=== PATIENT | female | born 1990 | race Caucasian/White ===

== ENCOUNTER 2019-11-02 09:13 | Emergency (ER) | payer SELFPAY ==
[2019-11-02 09:19] VITALS: BP 121/89; PULSE 104; RESP 16; TEMP 36.9; O2SAT 100; BMI 23.3
--- NOTE | 2019-11-02 09:35 | ED_ITS ---
HPI - Chest Pain General: Chief Complaint: Chest Pain Stated Complaint: CP Time Seen by Provider: 11/02/19 09:18 History of Present Illness: HPI narrative: Patient is a 28-year-old female who comes to the ED with chest pain. Patient has a past medical history of anxiety and has a bicuspid heart valve. Symptoms started 2 weeks ago. She describes having waxing and waning chest pressure, heaviness and shortness of breath that occurs multiple times a day. Episodes start at rest and sometimes when patient is up moving around. She describes having pain that radiates down her left arm and is the back of her left shoulder. She currently rates her chest pain and discomfort a 1 out of 10. She does endorse having some epigastric pain. Patient did state that she has been stressed and anxious about some things that are going on her life currently. Denies abdominal pain, nausea/vomiting, bladder or bowel symptoms. Associated symptoms: Reports dyspnea; Deny abdominal pain, fever(s), nausea, palpitations or vomiting Review of Systems Const: Denies: fever(s), chills or fatigue Eyes: Denies: change in vision or eye discomfort ENMT: Denies: throat pain, odynophagia, nasal discharge or nasal congestion Card: Reports: chest pain (Chest pressure and heaviness.); Denies: palpitations, edema, swelling of feet/ankles, dyspnea on exertion or orthopnea Resp: Reports: dyspnea; Denies: productive cough or non-productive cough GI: Reports: other (She does endorse having some mild epigastric pain.); Denies: abdominal pain, nausea, vomiting, diarrhea, constipation or hematochezia : Denies: flank pain, dysuria or hematuria Musc: Denies: neck pain, back pain or extremity swelling Skin/Breast: Denies: rash or new lesions Neuro: Denies: headache(s), numbness in extremities or weakness in extremities Physical Exam Narrative: EXAM NARRATIVE: Patient is a 28-year-old female comes to the ED with chest pain and upon examination she is showing no signs of any acute distress or pain. She is sitting comfortably on the exam bed and showing no signs of any respiratory distress. Const: COMMON NORMALS: no acute distress, patient oriented x3, healthy appearing and alert GENERAL APPEARANCE: cooperative and comfortable HENMT: COMMON NORMALS: normocephalic HEAD & SCALP: normocephalic MOUTH: Normal oral and palatal mucosa present THROAT: posterior oropharynx normal an d uvula midline Eye: COMMON NORMALS: Equal, round and reactive pupils present PUPIL: Yes Equal, round and reactive pupils present Neck/C-Spine: COMMON NORMALS: supple GENERAL: Yes normal visual inspection Resp: COMMON NORMALS: normal respiratory effort, No retractions, No use of accessory muscles and clear to auscultation bilaterally AUSCULTATION: clear to auscultation bilaterally Cardio: COMMON NORMALS: regular rate, regular rhythm, S1 normal heart sound present, S2 normal heart sound present, No gallops present (Cardio), No clicks present (Cardio), No murmurs present (Cardio) and Peripheral pulses 2+ throughout RATE: regular rate RHYTHM: regular rhythm HEART SOUNDS: S1 normal heart sound present and S2 normal heart sound present PERIPHERAL PULSES: Peripheral pulses 2+ throughout GI: COMMON NORMALS: Normal to inspection, nondistended, normoactive bowel sounds present, Soft to palpation, non-tender and no masses PALPATION: Yes Soft to palpation : COMMON NORMALS: Yes no CVA tenderness BLADDER/KIDNEY EXAM: Yes no CVA tenderness Back/Pelvis: COMMON NORMALS: no CVA tenderness Extremity: COMMON NORMALS: normal to inspection and no pedal edema Neuro: COMMON NORMALS: patient oriented x3 and moves all extremities SENSORIUM/ORIENTATION: Yes alert Psych: MOOD & AFFECT: Yes anxious Skin: COMMON NORMALS: no rashes or lesions noted GENERAL SKIN EXAM: no rashes or lesions noted and dry skin Course Vital Signs: Vital signs: Vital Signs Temperature 98.4 F 11/02/19 09:19 Pulse Rate 92 11/02/19 11:40 Respiratory Rate 18 11/02/19 11:40 Blood Pressure 111/76 11/02/19 11:40 Pulse Oximetry 97 11/02/19 11:40 MDM - Chest Pain MDM Narrative: Medical decision making narrative: Patient is a 28-year-old female comes to the ED with on and off again chest pain for the past 2 weeks. Patient has a past medical history of anxiety and does say she is been stressed and anxious recently. Exam shows a patient that appears anxious but in no acute distress or pain. EKG showed normal sinus rhythm with no signs of ST segment elevation or depression seen and troponin negative. CBC CMP and UA were all unremarkable. Chest x-ray showed no acute findings. Patient was given Ativan while here in the unit and her symptoms resolved. Patient was diagnosed with noncardiac chest pain and anxiety and told to follow-up with PCP in 7 to 10 days for reevaluation. Return to ED precautions given. Patient understood and agreed with plan. Lab Data: Attestation: I reviewed the patient's lab results. Labs: Lab Results 11/02/19 11/02/19 11/02/19 Range/Units 09:38 09:38 09:38 WBC 5.6 (4.0-10.0) 10^3/ uL RBC 4.86 (4.1-5.3) 10^6/u L Hgb 13.6 (11.5-15.3) g/dL Hct 43.5 (37.0-47.0) % MCV 89.5 (81-99) fL MCH 28.0 (28.0-34.0) pg MCHC 31.3 (30.0-36.0) g/dL RDW 13.2 (12.1-15.1) % Plt Count 191 (130-400) 10^3/c mm MPV 10.7 H (7.4-10.4) fL Neut % (Auto) 64.4 % Lymph % (Auto) 25.6 % [place] % (Auto) 7.7 % Eos % (Auto) 1.6 % Baso % (Auto) 0.5 % Neut # (Auto) 3.59 (1.8-7.7) 10^3/u L Lymph # (Auto) 1.4 (0.8-4.8) 10^3/u L [place] # (Auto) 0.4 (0.2-0.9) 10^3/u L Eos # (Auto) 0.1 (0.0-0.8) 10^3/u L Baso # (Auto) 0.0 (0.0-0.1) 10^3/u L Nucleated RBC % (a uto) 0 % Nucleated RBCs # 0.0 /100WBC Sodium 138 (136-145) mmol/L Potassium 3.9 (3.5-5.1) mmol/L Chloride 104 (98-107) mmol/L Carbon Dioxide 23 (22-29) mmol/L Anion Gap 14.9 (5-19) BUN 17 (6-20) mg/dL Creatinine 0.8 (0.5-0.9) mg/dL GFR Calculation 86.7 L (90-130) mL/min Glucose 103 (65-115) mg/dL Calculated Osmolal ity 283 L (285-295) mOsm/k g Calcium 9.0 (8.5-10.5) mg/dL Total Bilirubin 0.5 (0.15-1.2) mg/dL AST 13 (0-32) U/L ALT 7 (0-33) U/L Alkaline Phosphata se 61 (35-105) IU/L Troponin T Baselin e 6 (0-10) ng/L Total Protein 7.5 (6.6-8.7) g/dL Albumin 4.8 (3.5-5.2) g/dL Globulin 2.7 (1.3-4.6) g/dL HCG, Qual (Negative) Urine Color (Yellow) Urine Appearance (CLEAR) Urine pH (5-7) Ur Specific Gravit y (1.005-1.030) Urine Protein (Negative) Urine Glucose (UA) (Normal) Urine Ketones (Negative) Urine Blood (Negative) Urine Nitrate (Negative) Urine Bilirubin (NEGATIVE) Urine Urobilinogen (Negative) mg/dL Ur Leukocyte Mary [place] ase (Negative) Urine RBC (0-2) /hpf Urine WBC (0-5) /hpf Ur Squamous Epith Cells (0-5) Amorphous Sediment Urine Bacteria (NONE) Urine Mucus 11/02/19 11/02/19 Range/Units 09:38 09:52 WBC (4.0-10.0) 10^3/ uL RBC (4.1-5.3) 10^6/u L Hgb (11.5-15.3) g/dL Hct (37.0-47.0) % MCV (81-99) fL MCH (28.0-34.0) pg MCHC (30.0-36.0) g/dL RDW (12.1-15.1) % Plt Count (130-400) 10^3/c mm MPV (7.4-10.4) fL Neut % (Auto) % Lymph % (Auto) % [place] % (Auto) % Eos % (Auto) % Baso % (Auto) % Neut # (Auto) (1.8-7.7) 10^3/u L Lymph # (Auto) (0.8-4.8) 10^3/u L [place] # (Auto) (0.2-0.9) 10^3/u L Eos # (Auto) (0.0-0.8) 10^3/u L Baso # (Auto) (0.0-0.1) 10^3/u L Nucleated RBC % (a uto) % Nucleated RBCs # /100WBC Sodium (136-145) mmol/L Potassium (3.5-5.1) mmol/L Chloride (98-107) mmol/L Carbon Dioxide (22-29) mmol/L Anion Gap (5-19) BUN (6-20) mg/dL Creatinine (0.5-0.9) mg/dL GFR Calculation (90-130) mL/min Glucose (65-115) mg/dL Calculated Osmolal ity (285-295) mOsm/k g Calcium (8.5-10.5) mg/dL Total Bilirubin (0.15-1.2) mg/dL AST (0-32) U/L ALT (0-33) U/L Alkaline Phosphata se (35-105) IU/L Troponin T Baselin e (0-10) ng/L Total Protein (6.6-8.7) g/dL Albumin (3.5-5.2) g/dL Globulin (1.3-4.6) g/dL HCG, Qual Negative (Negative) Urine Color Yellow (Yellow) Urine Appearance Sl hazy (CLEAR) Urine pH 6.5 (5-7) Ur Specific Gravit y 1.015 (1.005-1.030) Urine Protein Neg (Negative) Urine Glucose (UA) Norm (Normal) Urine Ketones Negative (Negative) Urine Blood Neg (Negative) Urine Nitrate Negative (Negative) Urine Bilirubin Neg (NEGATIVE) Urine Urobilinogen Norm (Negative) mg/dL Ur Leukocyte [place] ase 1+ H (Negative) Urine RBC None (0-2) /hpf Urine WBC 5-10 H (0-5) /hpf Ur Squamous Epith Cells 25-40 H (0-5) Amorphous Sediment Not Reportable Urine Bacteria 1+ H (NONE) Urine Mucus 1+ Imaging Data^: CXR: Attestation: I personally reviewed and interpreted this imaging study as follows: Radiologist's impression: [address] [address] XRay Report Signed Patient: Shabana Barillas Unit #: [id number] : 1990 Age/Sex: 28 / F ADM Date: 11/02/19 Loc: ER Room/Bed: Attending Dr: Ordering Provider/Ordering MD: Kenan Marinelli Date of Service: 11/02/19 Procedure(s): XR chest 1V portable [id number] Accession Number(s): [id number] Report Number: [id number] PROCEDURE INFORMATION: Exam: XR Chest, 1 View Exam date and time: 11/02/2019 9:47 AM Age: 28 years old Clinical indication: Pain; Patient HX: Chest pressure in center to left side of chest; Additional info: Cp TECHNIQUE: Imaging protocol: XR of the chest Views: 1 view. COMPARISON: No relevant prior studies available. FINDINGS: Lungs: Unremarkable. No consolidation. Pleural space: Unremarkable. No pleural effusion. No pneumothorax. Heart/Mediastinum: Unremarkable. No cardiomegaly. Bones/joints: Unremarkable. XR/XR chest 1V portable [id number] IMPRESSION: No acute findings. Dictated By: Nick Max MD Signed By: Nick Max MD Signed Date/Time: 11/02/19 1014 DD/ 1013 EKG Data^: EKG 1: Attestation: I personally reviewed and interpreted this EKG as follows: EKG interpretation date: 11/02/19 Interpretation: Normal sinus rhythm, 92 bpm, no ST segment elevation or depression seen, P waves present. EKG 2: Attestation: I personally reviewed and interpreted this EKG as follows: EKG interpretation date: 11/02/19 Interpretation: This EKG was performed 2 hours after initial EKG. No acute change seen. Normal sinus rhythm, 95 bpm, no ST segment elevation or depression seen, P waves present. Discharge Plan Discharge Patient Disposition: Home Clinical Impression: Chest pain, non-cardiac, Anxiety Condition: Stable Prescriptions: No Action ibuprofen 800 mg tablet 800 mg PO TID 7 Days Qty: 21 RF: 0 Discharge Orders: Discharge Order (Routine); Ordered 11/02/19 Ordered By: Kenan Marinelli Discharge Diet: Regular Discharge Activity: Increase activity as tolerated Patient Instructions: Chest Pain - Noncardiac, Anxiety (ED) Activity Restrictions/Additional Instructions: Follow-up with medical provider as directed in 5-7 days. Return to the ER or your medical provider if condition worsens. Please read and understand discharge instructions. If any questions, please ask. Discharge Date/Time: 11/02/19 11:46 Coding Level of Care Code ED Capacitor Inspector for Chg Fwd Exam Comprehensive
[2019-11-02] MEDS: lidocaine 2% viscous 15 ML, aluminum-mag hydrox-simethicon 30 ML, sucralfate oral liq 1 GM PO (09:41)
[2019-11-02 09:47] LABS: Basophils % 0.5 %; Eosinophils # 0.1 10^3/uL (0.0-0.8); Eosinophils % 1.6 %; Hematocrit 43.5 % (37.0-47.0); Hemoglobin 13.6 g/dL (11.5-15.3); Lymphocytes # 1.4 10^3/uL (0.8-4.8); Lymphocytes % 25.6 %; Mean Corpuscular HGB Conc 31.3 g/dL (30.0-36.0); Mean Corpuscular Volume 89.5 fL (81-99); Mean Platelet Volume 10.7 fL (7.4-10.4); Monocytes # 0.4 10^3/uL (0.2-0.9); Monocytes % 7.7 %; Neutrophils # 3.59 10^3/uL (1.8-7.7); Neutrophils % 64.4 %; Nucleated Red Blood Cells % 0 %; Platelet Count 191 10^3/cmm (130-400); Red Blood Count 4.86 10^6/uL (4.1-5.3); Red Cell Distribution Width 13.2 % (12.1-15.1); White Blood Count 5.6 10^3/uL (4.0-10.0)
[2019-11-02 09:53] VITALS: BP 112/77; PULSE 95; RESP 22; O2SAT 99
[2019-11-02 09:54] LABS: HCG, Serum Qual Negative (Negative)
[2019-11-02 10:07] LABS: Alanine Aminotransferase 7 U/L (0-33); Albumin Level 4.8 g/dL (3.5-5.2); Alkaline Phosphatase 61 IU/L (35-105); Anion Gap 14.9 (5-19); Aspartate Amino Transferase 13 U/L (0-32); Blood Urea Nitrogen 17 mg/dL (6-20); Carbon Dioxide 23 mmol/L (22-29); Chloride 104 mmol/L (98-107); Creatinine Clr Calc Pharmacy 100.2666; Globulin 2.7 g/dL (1.3-4.6); Glomerular Filtration Rate 86.7 mL/min (90-130); Glucose 103 mg/dL (65-115); Osmolality Calculated 283 mOsm/kg (285-295); Potassium 3.9 mmol/L (3.5-5.1); Sodium 138 mmol/L (136-145); Total Bilirubin 0.5 mg/dL (0.15-1.2); Total Protein 7.5 g/dL (6.6-8.7)
[2019-11-02 10:08] LABS: Troponin(5th) Baseline 6 ng/L (0-10)
[2019-11-02 10:27] LABS: Add Urine Microscopic? YES; Bacteria Urine 1+; Bilirubin Urine Neg (NEGATIVE); Blood Urine Neg (Negative); Glucose Urine UA Norm (Normal); Ketones Urine Negative (Negative); Leukocyte Esterase Urine 1+ (Negative); Nitrate Urine Negative (Negative); Protein Urine Neg (Negative); Specific Gravity, Urine 1.015 (1.005-1.030); Squamous Epithelial Cell Urine 25-40 (0-5); Urine Appearance SL Hazy (CLEAR); Urine Color Yellow (Yellow); Urobilinogen Urine Norm (Negative); pH Urine 6.5 (5-7)
[2019-11-02 10:28] LABS: Add Urine Culture? No; Mucus Urine 1+
[2019-11-02] MEDS: LORazepam 2 mg/mL INJ 1 mL 1 MG IVP (10:43)
[2019-11-02 10:47] VITALS: BP 115/82; PULSE 100; RESP 19; O2SAT 100
--- NOTE | 2019-11-02 11:33 | ECG_ITS ---
[facility] Test Date: 2019-11-02 Pat Name: Shabana Barillas Department: Room: Gender: Female Watch Crystal Grinder: : 1990 Requested By: Kenan Marinelli Order Number: [id number] Silvia MD: Davis Miller M.D. Measurements Intervals [place] Rate: 95 P: 78 MS: 131 QRS: 71 QRSD: 79 T: 33 QT: 317 QTc: 399 Interpretive Statements SINUS RHYTHM WITH SINUS ARRHYTHMIA POSSIBLE LEFT ATRIAL ENLARGEMENT [-0.1mV P WAVE IN V1/V2] No previous ECG available for comparison Electronically Signed On 11-02-2019 20:46:01 CDT by Davis Miller M.D. [email or web address] medical specialty hospital - [id number]
[2019-11-02 11:40] VITALS: BP 111/76; PULSE 92; RESP 18; O2SAT 97
--- NOTE | 2019-11-02 11:43 | PC.NURSE ---
patient was given 1 mg ativan and was disoriented at time of discharge and unsteady on her feet. since patient drove herself patient was advised to stay awhile and try to wake up or have someone pick her up
== END 2019-11-02 11:46 | disposition home or self-care (01) ==
PROVIDERS: Emergency Provider Physician Assistant
DX: R07.89 Other chest pain (principal); F41.9 Anxiety disorder, unspecified
CPT/HCPCS: 12345; 36415; 71045; 80053; 81001; 81003; 84484; 84703; 85025; 93005; 96374; 99283; 99284; J2060

== ENCOUNTER → 2019-11-18 14:54 | Outpatient (BNVA) | payer SELFPAY | PROVIDERS: Visit Provider Nurse Practitioner Family | DX: N30.00 Acute cystitis without hematuria (principal); K59.00 Constipation, unspecified; R10.9 Unspecified abdominal pain | CPT/HCPCS: 81000 ==

== ENCOUNTER 2019-11-27 14:47 | Emergency (ER) | payer SELFPAY ==
[2019-11-27 15:07] VITALS: BP 126/83; PULSE 109; RESP 18; TEMP 36.9; O2SAT 97; BMI 22.4
--- NOTE | 2019-11-27 16:07 | XR_ITS ---
WS: [id number] EXAM: AP CHEST: PORTABLE UPRIGHT DATE OF EXAM: 11/27/2019, 1634 hours COMPARISON: Chest x-ray from 11/02/2019 HISTORY: Patient is 28 years old with cough and dyspnea. FINDINGS: The cardiac silhouette is normal in size. The mediastinal contours are normal. The pulmonary vas cularity is normal. The lungs are clear of infiltrate. There is no effusion or pneumothorax. No ac sonia bony abnormality is seen. XR/XR chest 1V portable [id number] IMPRESSION: No acute pulmonary disease.
--- NOTE | 2019-11-27 16:07 | ECG_ITS ---
[facility] Test Date: 2019-11-27 Pat Name: Shabana Barillas Department: Room: Gender: Female Screener Perfumer: : 1990 Requested By: Alejandro Langford Order Number: [id number] Silvia MD: Jeovany Bedolla M.D. Measurements Intervals [place] Rate: 92 P: 83 NE: 110 QRS: 79 QRSD: 81 T: 44 QT: 333 QTc: 412 Interpretive Statements SINUS RHYTHM WITH SHORT NE INTERVAL Compared to ECG 11/02/2019 11:25:25 Short NE interval now present Sinus arrhythmia no longer present Electronically Signed On 11-27-2019 19:06:41 CDT by Jeovany Bedolla M.D. [id number]
[2019-11-27 16:25] LABS: ABG PCO2 28.5 mmHg (35-45); ABG PH Result 7.48 (7.35-7.45); Alveolar-Arterial Oxygen Gradi 4.5 mmHg (5-10); Arterial Blood Gas Hematocrit 42.6 % (37-47); Blood Gas Allen Test Pos; Blood Gas Operator Identificat CAK; Blood Gas Sample Site Brachial, left; Blood Gas Sample Type Arterial; Carboxyhemoglobin 0.8 %THgb (0.4-20.1); HCO3 ABG 21.3 mmol/L (22-26); HGB O2 Sat 97.4 % (95-100); Ionized Calcium Level - ABG 1.2 mmol/L (1.1-1.4); Methemoglobin 0.9 % (0.4-1.5); Oxygen Device ROOM AIR; Oxygen Saturation ABG 99.1; PO2 ABG 78.2 mmHg (80.0-100.0); Total Hemoglobin 13.9 g/dL (12-16)
[2019-11-27 16:38] LABS: Basophils % 0.3 %; Eosinophils % 0.2 %; Hematocrit 41.4 % (37.0-47.0); Hemoglobin 13.6 g/dL (11.5-15.3); Lymphocytes % 15.8 %; Mean Corpuscular HGB Conc 32.9 g/dL (30.0-36.0); Mean Corpuscular Hemoglobin 28.5 pg (28.0-34.0); Mean Corpuscular Volume 86.6 fL (81-99); Mean Platelet Volume 10.5 fL (7.4-10.4); Monocytes # 0.4 10^3/uL (0.2-0.9); Monocytes % 6.5 %; Neutrophils # 5.09 10^3/uL (1.8-7.7); Nucleated Red Blood Cells % 0 %; Platelet Count 217 10^3/cmm (130-400); Red Blood Count 4.78 10^6/uL (4.1-5.3); Red Cell Distribution Width 12.9 % (12.1-15.1); White Blood Count 6.6 10^3/uL (4.0-10.0)
[2019-11-27 16:58] LABS: D Dimer 0.29 ug/mIFEU (0-0.59)
--- NOTE | 2019-11-27 17:03 | ED_ITS ---
HPI - General Adult General: Chief complaint: General Medical Stated complaint: multiple complaints Time Seen by Provider: 11/27/19 15:53 History of Present Illness: HPI narrative: 28-year-old female presents complaining of shortness of breath for the last couple of days she has had some nausea loose stools but no real diarrhea no vomiting. She denies a fever or productive cough she has chest pain but she has had it for the last month she was evaluated for it previously was thought to be musculoskeletal nature and is still reproducible with palpation on the chest, and with deep inspiration Onset (ago): day(s) Location: chest Radiation: non-radiation Severity: mild Quality: sharp Pain Consistency: intermittent Relieving factors: rest Exacerbating factors: other (Inspiration and palpation) Associated symptoms: Reports chest pain, cough and dyspnea; Deny confusion, diaphoresis, decreased appetite, fevers/chills, headache(s), malaise, nausea, rash, palpitations, seizures, short of breath, syncope, vomiting or weakness Treatments prior to arrival: none Review of Systems Const: Denies: malaise or diaphoresis ENMT: Denies: throat pain, ear or mastoid pain, nasal discharge or nasal congestion Card: Reports: chest pain; Denies: palpitations or syncope Resp: Reports: dyspnea GI: Denies: nausea or vomiting : Denies: flank pain, difficulty voiding, dysuria, urinary frequency or urinary urgency Skin/Breast: Denies: rash Neuro: Denies: headache(s) or confusion [facility] ED PFSH: Medical History (Updated 11/27/19 @ 17:59 by Alejandro Knight DO) No significant past medical history Surgical History (Updated 11/27/19 @ 17:06 by Alejandro Knight DO) No significant past surgical history Social History (Updated 11/27/19 @ 15:13 by Corwin Ellis RN) Smoking and tobacco status: never smoked Alcohol intake: never Female Reproductive History: Date of last menstrual period: 11/13/19 Physical Exam Const: COMMON NORMALS: no acute distress GENERAL APPEARANCE: cooperative and comfortable ORIENTATION/CONSCIOUSNESS: Yes awake, Yes oriented to person, Yes oriented to place and Yes oriented to time HENMT: COMMON NORMALS: normocephalic, atraumatic and hearing grossly normal bilaterally HEAD & SCALP: normocephalic and atraumatic Eye: COMMON NORMALS: Equal, round and reactive pupils present, EOMs intact bilaterally, conjunctivae normal and no scleral icterus CONJUNCTIVA: Yes conjunctivae normal PUPIL: Yes Equal, round and reactive pupils present Neck/C-Spine: COMMON NORMALS: full ROM, no lymphadenopathy, supple and no JVD Lymph: LYMPHATIC: no lymphadenopathy noted and no lymphedema noted Resp: COMMON NORMALS: normal respiratory effort, No retractions, No use of accessory muscles and clear to auscultation bilaterally AUSCULTATION: clear to auscultation bilaterally Cardio: COMMON NORMALS: no JVD, regular rate, regular rhythm and No murmurs present (Cardio) RATE: regular rate RHYTHM: regular rhythm GI: COMMON NORMALS: Soft to palpation and No hepatosplenomegaly present AUSCULTATION: Yes normoactive bowel sounds PALPATION: Yes Soft to palpation, No Tenderness to palpation present (GI), No Guarding due to palpation present (GI) and Yes No hepatosplenomegaly present Extremity: COMMON NORMALS: normal to inspection, capillary refill normal, no clubbing, cyanosis or edema, no calf tenderness and no pedal edema Neuro: SENSORIUM/ORIENTATION: Yes oriented to person, Yes oriented to place and Yes oriented to time Skin: COMMON NORMALS: no rashes or lesions noted GENERAL SKIN EXAM: no rashes or lesions noted Course Vital Signs: Vital signs: Vital Signs Temperature 98.4 F 11/27/19 15:07 Pulse Rate 88 11/27/19 18:03 Respiratory Rate 18 11/27/19 18:03 Blood Pressure 119/80 11/27/19 18:03 Pulse Oximetry 97 11/27/19 15:07 MDM - General Adult MDM Narrative: Medical decision making narrative: Labs unremarkable d-dimer negative chest x-ray is negative patient was hyperventilating a little when she came in. Think she may have reactive airway disease. We will try her on a burst of steroids and an albuterol inhaler recheck if not improving. Lab Data: Labs: Lab Results 11/27/19 11/27/19 11/27/19 Range/Units 16:14 16:20 16:20 WBC 6.6 (4.0-10.0) 10^3/ uL RBC 4.78 (4.1-5.3) 10^6/u L Hgb 13.6 (11.5-15.3) g/dL Hct 41.4 (37.0-47.0) % MCV 86.6 (81-99) fL MCH 28.5 (28.0-34.0) pg MCHC 32.9 (30.0-36.0) g/dL RDW 12.9 (12.1-15.1) % Plt Count 217 (130-400) 10^3/c mm MPV 10.5 H (7.4-10.4) fL Neut % (Auto) 77.0 % Lymph % (Auto) 15.8 % [place] % (Auto) 6.5 % Eos % (Auto) 0.2 % Baso % (Auto) 0.3 % Neut # (Auto) 5.09 (1.8-7.7) 10^3/u L Lymph # (Auto) 1.0 (0.8-4.8) 10^3/u L [place] # (Auto) 0.4 (0.2-0.9) 10^3/u L Eos # (Auto) 0.0 (0.0-0.8) 10^3/u L Baso # (Auto) 0.0 (0.0-0.1) 10^3/u L Nucleated RBC % (a uto) 0 % Nucleated RBCs # 0.0 /100WBC D-Dimer (0-0.59) ug/mIFE U Specimen Type Arterial Sample Site Brachial, left ABG pH 7.48 H (7.35-7.45) ABG pCO2 28.5 L (35-45) mmHg ABG pO2 78.2 L (80.0-100.0) mmH g ABG HCO3 21.3 L (22-26) mmol/L ABG O2 Saturation 99.1 ABG Base Excess -1.0 (-2.0-2.0) mmol/ L Jason Test Pos A-a O2 Gradient 4.5 L (5-10) mmHg Hematocrit 42.6 (37-47) % Hgb O2 Saturation 97.4 (95-100) % Carboxyhemoglobin 0.8 (0.4-20.1) %THgb Methemoglobin 0.9 (0.4-1.5) % Total Hemoglobin 13.9 (12-16) g/dL Sodium 139.0 135 L (131-143) mmol/L Potassium 4.0 4.2 (3.5-5.0) mmol/L Glucose 100.0 99 (70-115) mg/dL Ionized Calcium 1.2 (1.1-1.4) mmol/L O2 Delivery Device Room air FiO2 21.0 % Explosive Ordnance Disposal Specialist ID Cak Chloride 103 (98-107) mmol/L Carbon Dioxide 22 (22-29) mmol/L Anion Gap 14.2 (5-19) BUN 15 (6-20) mg/dL Creatinine 0.8 (0.5-0.9) mg/dL GFR Calculation 86.7 L (90-130) mL/min Calculated Osmolal ity 276 L (285-295) mOsm/k g Calcium 9.7 (8.5-10.5) mg/dL Total Bilirubin 0.5 (0.15-1.2) mg/dL AST 12 (0-32) U/L ALT 8 (0-33) U/L Alkaline Phosphata se 61 (35-105) IU/L Troponin T Baselin e (0-10) ng/L Total Protein 7.3 (6.6-8.7) g/dL Albumin 4.5 (3.5-5.2) g/dL Globulin 2.8 (1.3-4.6) g/dL 11/27/19 11/27/19 Range/Units 16:20 16:20 WBC (4.0-10.0) 10^3/ uL RBC (4.1-5.3) 10^6/u L Hgb (11.5-15.3) g/dL Hct (37.0-47.0) % MCV (81-99) fL MCH (28.0-34.0) pg MCHC (30.0-36.0) g/dL RDW (12.1-15.1) % Plt Count (130-400) 10^3/c mm MPV (7.4-10.4) fL Neut % (Auto) % Lymph % (Auto) % [place] % (Auto) % Eos % (Auto) % Baso % (Auto) % Neut # (Auto) (1.8-7.7) 10^3/u L Lymph # (Auto) (0.8-4.8) 10^3/u L [place] # (Auto) (0.2-0.9) 10^3/u L Eos # (Auto) (0.0-0.8) 10^3/u L Baso # (Auto) (0.0-0.1) 10^3/u L Nucleated RBC % (a uto) % Nucleated RBCs # /100WBC D-Dimer 0.29 (0-0.59) ug/mIFE U Specimen Type Sample Site ABG pH (7.35-7.45) ABG pCO2 (35-45) mmHg ABG pO2 (80.0-100.0) mmH g ABG HCO3 (22-26) mmol/L ABG O2 Saturation ABG Base Excess (-2.0-2.0) mmol/ L Jason Test A-a O2 Gradient (5-10) mmHg Hematocrit (37-47) % Hgb O2 Saturation (95-100) % Carboxyhemoglobin (0.4-20.1) %THgb Methemoglobin (0.4-1.5) % Total Hemoglobin (12-16) g/dL Sodium (131-143) mmol/L Potassium (3.5-5.0) mmol/L Glucose (70-115) mg/dL Ionized Calcium (1.1-1.4) mmol/L O2 Delivery Device FiO2 % Explosive Ordnance Disposal Specialist ID Chloride (98-107) mmol/L Carbon Dioxide (22-29) mmol/L Anion Gap (5-19) BUN (6-20) mg/dL Creatinine (0.5-0.9) mg/dL GFR Calculation (90-130) mL/min Calculated Osmolal ity (285-295) mOsm/k g Calcium (8.5-10.5) mg/dL Total Bilirubin (0.15-1.2) mg/dL AST (0-32) U/L ALT (0-33) U/L Alkaline Phosphata se (35-105) IU/L Troponin T Baselin e 6 (0-10) ng/L Total Protein (6.6-8.7) g/dL Albumin (3.5-5.2) g/dL Globulin (1.3-4.6) g/dL Discharge Plan Discharge Patient Disposition: Home Clinical Impression: Bronchitis Condition: Stable Prescriptions: New Medrol (Star) 4 mg tablets,dose pack See Rx Instructions .ROUTE .COMPLEX Qty: 21 RF: 0 albuterol sulfate 90 mcg/actuation HFA aerosol inhaler 2 inh INHALATION Q4H PRN (Reason: shortness of breath or wheezing) Qty: 18 RF: 0 diclofenac sodium 75 mg tablet,delayed release (DR/EC) 75 mg PO Q12H PRN (Reason: pain) Qty: 20 RF: 0 No Action iron 18 mg Tablet 18 mg PO DAILY RF: 0 Discharge Orders: Discharge Order (Routine); Ordered 11/27/19 Ordered By: Alejandro Knight Discharge Diet: Usual diet Discharge Activity: Increase activity as tolerated Activity Restrictions/Additional Instructions: Return if you have problems. Otherwise follow-up with your primary care provider Discharge Date/Time: 11/27/19 18:03 Coding Level of Care Code ED Quality Control Supervisor for Bee Fwd Exam Comprehensive
[2019-11-27 17:04] LABS: Alanine Aminotransferase 8 U/L (0-33); Albumin Level 4.5 g/dL (3.5-5.2); Alkaline Phosphatase 61 IU/L (35-105); Anion Gap 14.2 (5-19); Aspartate Amino Transferase 12 U/L (0-32); Blood Urea Nitrogen 15 mg/dL (6-20); Calcium 9.7 mg/dL (8.5-10.5); Carbon Dioxide 22 mmol/L (22-29); Chloride 103 mmol/L (98-107); Globulin 2.8 g/dL (1.3-4.6); Glomerular Filtration Rate 86.7 mL/min (90-130); Glucose 99 mg/dL (65-115); Osmolality Calculated 276 mOsm/kg (285-295); Potassium 4.2 mmol/L (3.5-5.1); Sodium 135 mmol/L (136-145); Total Bilirubin 0.5 mg/dL (0.15-1.2); Total Protein 7.3 g/dL (6.6-8.7)
[2019-11-27 17:06] LABS: Troponin(5th) Baseline 6 ng/L (0-10)
[2019-11-27 18:03] VITALS: BP 119/80; PULSE 88; RESP 18
== END 2019-11-27 18:03 | disposition home or self-care (01) ==
PROVIDERS: Emergency Provider Family Medicine
DX: J40 Bronchitis, not specified as acute or chronic (principal)
CPT/HCPCS: 12345; 36600; 71045; 80051; 80053; 82810; 83986; 84484; 85025; 85378; 93005; 99281; 99283

== ENCOUNTER → 2020-02-11 16:01 | Outpatient (BNVA) | payer SELFPAY | PROVIDERS: Visit Provider Nurse Practitioner Women's Health | DX: Z11.3 Encounter for screening for infections with a predominantly sexual mode of transmission (principal) | CPT/HCPCS: 87491; 87591; 87661; 88175 ==

== ENCOUNTER 2020-05-01 07:42 | Outpatient (CLI) | payer SELFPAY ==
--- NOTE | 2020-05-01 08:00 | US_ITS ---
WS: [id number] ULTRASOUND ABDOMEN LIMITED CLINICAL INFORMATION: R10.811 - Right upper quadrant abdominal tenderness COMPARISON: None. FINDINGS: Liver Size: Normal. Craniocaudal length: 13.6 cm. Echogenicity: Normal. Surface nodularity: None. Mass (size and location): None. Bile ducts Intrahepatic ducts: Normal. Common bile duct diameter: 0.3 cm. Gallbladder Cholelithiasis with a large shadowing stone measuring 1.3 x 0.4 cm Gallstones: Present Gallbladder sludge: None. Gallbladder wall thickening: None. Pericholecystic fluid: None. Sonographic Price sign: Absent. Pancreas Normal as visualized. Right kidney: Normal. Hydronephrosis: None. Size: 9.3 cm x 3.4 cm x 3.6 cm. Abdominal aorta and IVC Visualized portions are normal. Ascites: None. US/US gall bladder [id number] IMPRESSION: 1. Normal liver. 2. Cholelithiasis. No gallbladder wall thickening. Normal common bile duct. 3. No hydronephrosis in right kidney.
== END 2020-05-01 07:43 | disposition home or self-care (01) ==
LOC: RAD 07:48
PROVIDERS: PCP Nurse Practitioner Family; Visit Provider Nurse Practitioner Family
DX: R10.811 Right upper quadrant abdominal tenderness (principal); K80.20 Calculus of gallbladder without cholecystitis without obstruction
CPT/HCPCS: 76705

== ENCOUNTER → 2020-05-12 10:27 | Outpatient (BNVA) | payer SELFPAY | PROVIDERS: PCP Nurse Practitioner Family; Visit Provider Surgery | DX: Z20.822 Contact with and (suspected) exposure to COVID-19 (principal); K80.00 Calculus of gallbladder with acute cholecystitis without obstruction | CPT/HCPCS: 87635 ==

== ENCOUNTER → 2020-05-19 11:18 | Outpatient (BNVA) | payer SELFPAY | PROVIDERS: PCP Nurse Practitioner Family; Visit Provider Surgery | DX: Z20.822 Contact with and (suspected) exposure to COVID-19 (principal) | CPT/HCPCS: 87635 ==

== ENCOUNTER 2020-05-24 06:36 | Day surgery (SDC) | payer SELFPAY ==
[2020-05-23 12:25] VITALS: BMI 20.7
[2020-05-24] VITALS (10 sets, daily range): BP systolic 114–136; BP diastolic 75–98; PULSE 84–124; RESP 13–23; TEMP 36.6–37.1; O2SAT 97–99
[2020-05-24] MEDS: sodium chloride 0.9% 1,000 ML 30 ML IV (07:08)
[2020-05-24] MEDS: midazolam 1 mg/mL INJ 2 mL 2 MG IVP (07:11)
--- NOTE | 2020-05-24 07:15 | ANES.PREANE2 ---
Pre-Anesthetic Assessment Pre-Anesthetic Assessment: Height/Weight: Height 1.65 m Weight 56.699 kg Temp Pulse Resp BP Pulse Ox 98.0 F 124 H 20 H 118/84 98 05/24/20 06:53 05/24/20 06:53 05/24/20 06:53 05/24/20 06:53 05/24/20 06:53 Preop Diagnosis: Cholelithiasis Proposed Procedure: Operation Date: 05/24/20 08:00 Proposed Procedures p Laparoscopic Cholecystectomy 48661 k80.20(Not Applicable) - Chris Sesay MD Familial anesthetic complications: None Was Beta Yokasta taken within 24 hours: N/A Last intake: Intake Last Liquid Date 05/23/20 Last Liquid Time 18:00 Last Solid Date 05/23/20 Last Solid Time 18:00 Social: Social History: No alcohol and No tobacco Exam: Pre-Anes Outpt Exam: alert, oriented x 3, clear to auscultation bilaterally and regular rate & rhythm Airway: Cervical ROM: WNL MP: 3 Dentition: Other (verry poor dentition, multiple chipped, broken, rotten) Additional comments: pt educated on risk of dental damage d/t poor dentition, patient indicating understanding and states they are already so damaged, I don't care CV/HEM: Comments: bicuspid aortic valve - asymptomatic able to run without difficulty GI: GI: GERD Anesthetic Plan: ASA status: 2 Anesthesia: General Risk of > 500 ml blood loss (7ml/kg in children): No Meds/Allergies Current Medications: Current Medications Generic Name Dose Route Start Last Admin Trade Name Freq PRN Reason Stop Dose Admin Sodium Chloride 1,000 mls @ 30 ml s/hr 05/24/20 06:45 05/24/20 07:08 Sodium Chloride 0.9% IV 05/25/20 06:44 30 mls/hr .Q24H [place] Administration Midazolam HCl 2 mg 05/24/20 06:42 05/24/20 07:11 Midazolam 1 Mg/M l Inj 2 Ml IVP 2 mg Q5M PRN Administration Preop Anxiety PFSH Anesthesia PFSH: Medical History (Updated 05/09/20 @ 13:33 by Chris Sesay MD) Bicuspid aortic valve needs protection from Bacterial Endocarditis Surgical History No significant past surgical history Family History Mother Thyroid disease Denies family history of Colon cancer Ovarian cancer Diabetes Heart disease Hypercholesteremia Breast cancer Bleeding disorder Hypertension Uterine cancer Stroke Social History Additional social history: - Tobacco use: former of cigars; not since 2016 Alcohol use: former-- stopped drinking at 23 Drug use: former-- marijuana-- stopped in 2016 Female Reproductive History: Date of last menstrual period: 05/16/20 Data Anesthesia Cardiac Studies: No Data to Display
--- NOTE | 2020-05-24 07:28 | W.PM.OPSUD ---
Surgery/Procedure H&P Update DATE OF PROCEDURE: May 24, 2020 DATE H&P PERFORMED: 05/09/20 H&P UPDATE INFORMATION: I have reviewed H&P completed within last 30 days, I have examined patient prior to procedure and No changes to prior documentation PREOP DIAGNOSIS: Cholelithiasis PLANNED PROCEDURE: Operation Date: 05/24/20 08:00 Proposed Procedures p Laparoscopic Cholecystectomy 74324 k80.20(Not Applicable) - Chris Sesay MD
[2020-05-24 08:11] LABS: OR HCG Qualitative Urine Negative (Negative)
--- NOTE | 2020-05-24 09:41 | P.PCN_ITS ---
PACU note PACU note: VSS, Good respiratory effort, report to SECURITY THREAT ANALYST Post-Anesthesia Exam: awake
--- NOTE | 2020-05-24 09:41 | PM.PACU ---
PACU note PACU note: VSS, Good respiratory effort, report to INTERNAL INVESTIGATOR Post-Anesthesia Exam: awake
[2020-05-24] MEDS: fentaNYL 50 mcg/mL INJ 2mL IVP ×2 (09:50→09:55)
[2020-05-24] MEDS: HYDROcodone-acetaminophen 5-325 mg Tablet 1 TAB PO (10:39)
--- NOTE | 2020-05-24 11:51 | PM.OP ---
Operative Report Date of procedure: May 24, 2020 Pre-op Diagnosis: Cholelithiasis Post-op diagnosis: same Procedure Done: Laparoscopic cholecystectomy Specimens removed/disposition: Gallbladder Surgeon: Chris Sesay Anesthesia: General Condition: stable Disposition: PACU Procedure: The patient was taken to the operating room and was intubated under general anesthesia. After the antibiotic had been administered, the abdomen was prepped and draped in a sterile manner. Using a #15 blade, a 1 centimeter infraumbilical curvilinear incision was made and using an open Gabbie technique the peritoneal cavity was entered. A 10 millimeter port was placed and 15 millimeters of pneumoperitoneum was created. A 10 millimeter, 30 degrees scope was then introduced. Three 5 millimeter ports were placed in the epigastric, midclavicular and the anterior axillary line two fingerbreadths below the costal margin on the right side under the direct visualization. Ratcheted forceps were introduced into the lateral most port and was used to retract the fundus of the gallbladder cephalad and using forceps the infundibulum of the gallbladder was retracted laterally. Using L-hook cautery the peritoneum overlying the Calot's triangle was opened medially and laterally until the cystic duct and the cystic artery were skeletonized. Dissection was carried along the body of the gallbladder and after ensuring critical view of safety, 4 clips applied on the cystic duct and 3 clips applied on the cystic artery and cut leaving, 3 clips on the remaining portion of the duct and 2 clips on the remaining portion of the artery. The rest of the gallbladder was dissected off the liver using L-hook cautery. There was an opening in the body of the gallbladder with spillage of bile which was irrigated and suctioned, but there was no spillage of stones. There was no bleeding or bile leaking noted from the gallbladder fossa and the clips appeared to be in place. An EndoCatch bag was introduced to remove the gallbladder. All the ports were removed under direct visualization and there was no bleeding noted from the port sites. The fascia of the umbilicus was closed using [id number] 0 Vicryl sutures and the subcutaneous tissue was approximated using 3-0 Vicryl sutures. The skin at all four ports were closed using 4-0 Monocryl and surgical glue. A total of 10 millimeters of 0.5% Marcaine was infiltrated around the port sites. The patient was stable throughout the procedure.
--- NOTE | 2020-05-24 20:00 | ANE.PACU2 ---
Inpatient post-anesthesia follow up: Airway intact: Yes Vital signs: Temperature 98.7 F Pulse Rate 90 Respiratory Rate 18 Blood Pressure 122/87 Pulse Oximetry 98 Oxygen Delivery Me thod Room Air Oxygen Flow Rate Fraction of Inspir ed Oxygen Hydration adequate: Yes Nausea and vomiting: No Pain level: 3 Mental status: Baseline
== END 2020-05-24 11:17 | disposition home or self-care (01) ==
PROVIDERS: Anesthesiology; PCP Nurse Practitioner Family; Visit Provider Surgery
PROC: 0FT44ZZ Resection of Gallbladder, Percutaneous Endoscopic Approach (ICD-10-PCS; CPT 47562; principal; 2020-05-24 08:00)
DX: K80.10 Calculus of gallbladder with chronic cholecystitis without obstruction (principal)
CPT/HCPCS: 47562; 81025; 84703; 88304; J0690; J1100; J2250; J2405; J2704; J3010; J3490; J7030

== ENCOUNTER 2020-09-09 00:11 | Emergency (ER) | payer SELFPAY ==
[2020-09-09 00:32] VITALS: BP 114/80; PULSE 96; RESP 15; TEMP 37; O2SAT 98; BMI 20.9
[2020-09-09 00:36] VITALS: PULSE 96
--- NOTE | 2020-09-09 00:55 | XRR_ITS ---
PROCEDURE INFORMATION: Exam: XR Right Ankle Exam date and time: 09/09/2020 1:06 AM Age: 29 years old Clinical indication: Injury or trauma; Fall; Blunt trauma; Right; Patient HX: Rolled ankle. C/O pain. Unable to dorsoflex foot. ; Additional info: Rolled, pain and swelling TECHNIQUE: Imaging protocol: XR Right ankle. Views: 3 or more views. COMPARISON: No relevant prior studies available. FINDINGS: Bones/joints: No acute fracture or dislocation. Soft tissues: Normal. XR/XR ankle RT min 3V* [id number] IMPRESSION: No acute fracture or dislocation.
[2020-09-09 02:09] VITALS: BP 112/87; PULSE 89; RESP 15; TEMP 37; O2SAT 98
--- NOTE | 2020-09-09 17:25 | W.ED.EXTPRO ---
HPI - Extremity Problem General: Chief complaint: Extremity Injury, Lower Stated complaint: Hurt right foot Time Seen by Provider: 09/09/20 00:44 History of Present Illness: HPI Narrative: 29-year-old female who rolled her ankle with pain and swelling and an audible pop following. Complaint: extremity pain and extremity swelling Onset (ago): minute(s) Pain Consistency: constant Location: right and lower extremity (Ankle) Quality: aching Radiation: none Relieving factors: nothing Exacerbating factors: weight bearing Associated symptoms: Deny fever(s) Review of Systems Const: Denies: fever(s) Resp: Denies: dyspnea GI: Denies: nausea or vomiting Musc: Reports: joint pain and joint swelling; Denies: neck pain Neuro: Denies: numbness in extremities PFSH ED PFSH: Medical History Bicuspid aortic valve needs protection from Bacterial Endocarditis Surgical History No significant past surgical history Status post laparoscopic cholecystectomy (05/24/20) Family History Mother Thyroid disease Denies family history of Colon cancer Ovarian cancer Diabetes Heart disease Hypercholesteremia Breast cancer Bleeding disorder Hypertension Uterine cancer Stroke Social History Additional social history: - Tobacco use: former of cigars; not since 2016 Alcohol use: former-- stopped drinking at 23 Drug use: former-- marijuana-- stopped in 2016 Female Reproductive History: Date of last menstrual period: 05/16/20 Physical Exam Const: COMMON NORMALS: no acute distress GENERAL APPEARANCE: cooperative and well developed Eye: COMMON NORMALS: EOMs intact bilaterally and conjunctivae normal CONJUNCTIVA: Yes conjunctivae normal Resp: COMMON NORMALS: normal respiratory effort and No use of accessory muscles Cardio: COMMON NORMALS: regular rate and regular rhythm RATE: regular rate RHYTHM: regular rhythm Extremity: NARRATIVE EXTREMITY EXAM: Exam of the right ankle swelling, the talus, and the medial ankle joint line. Over the subtalar joint. There is mild bruising. There is no deformity. There is bony tenderness of the distal fibula and the medial ankle joint line. Course Vital Signs: Vital signs: Vital Signs Temperature 98.6 F 09/09/20 02:09 Pulse Rate 89 09/09/20 02:09 Respiratory Rate 15 09/09/20 02:09 Blood Pressure 112/87 09/09/20 02:09 Pulse Oximetry 98 09/09/20 02:09 MDM - Extremity (Nontraumatic) MDM Narrative: Medical decision making narrative: X-rays negative for fracture she will be placed in an ankle stirrup brace, given crutches, and allowed to follow-up as an outpatient. Discharge Plan Discharge Patient Disposition: Home Clinical Impression: Ankle sprain and strain Condition: Stable Prescriptions: New ketorolac 10 mg tablet 10 mg PO TID PRN (Reason: pain) Qty: 10 RF: 0 No Action loratadine [Claritin] 10 mg tablet 10 mg PO DAILY PRN (Reason: allergy symptoms) Qty: 30 RF: 0 Discharge Orders: Discharge ED (Routine); Ordered 09/09/20 Ordered By: Theo Anton Discharge Diet: Usual diet Discharge Activity: Limit activity as instructed Patient Instructions: Ankle Sprain (ED) Activity Restrictions/Additional Instructions: Use crutches as needed for weightbearing. You may begin to bear weight as you tolerate. See your doctor within 1 week for repeat exam. Ice frequently. Use the brace until you are cleared. Coding Level of Care Code ED [employer] Radio Technician for Bee Pérez
== END 2020-09-09 02:11 | disposition home or self-care (01) ==
PROVIDERS: Emergency Provider Emergency Medicine
DX: S93.401A Sprain of unspecified ligament of right ankle, initial encounter (principal); X50.1XXA Overexertion from prolonged static or awkward postures, initial encounter
CPT/HCPCS: 73610; 99283; E0114

== ENCOUNTER → 2021-10-05 17:19 | Outpatient (BNVA) | payer OTHER, SELFPAY | PROVIDERS: Visit Provider Family Medicine Adult Medicine | DX: Z20.822 Contact with and (suspected) exposure to COVID-19 (principal) | CPT/HCPCS: 87635 ==

== ENCOUNTER → 2021-10-31 15:42 | Outpatient (BNVA) | payer OTHER, SELFPAY | PROVIDERS: Visit Provider Family Medicine Adult Medicine | DX: Q23.1 Congenital insufficiency of aortic valve (principal); Z13.6 Encounter for screening for cardiovascular disorders; F41.9 Anxiety disorder, unspecified; R05.3 Chronic cough; K21.9 Gastro-esophageal reflux disease without esophagitis | CPT/HCPCS: 80053; 84443; 85025 ==

== ENCOUNTER 2022-01-11 14:01 | Outpatient (CLI) | payer OTHER, SELFPAY ==
--- NOTE | 2022-01-11 14:30 | USCV_ITS ---
Shabana Barillas Age: 31 Gender: F : 1990 Exam Date: 01/11/2022 14:30 Ordering Phys: Keshawn Contreras MD Technologist: Eunice Hopper Exam Location: [facility] – [place] Indication: Known Bi cuspid AO BP: / HR: 86 Rhythm: Sinus Technical Quality: Adequate MEASUREMENTS (Male / Female) Normal Values 2D ECHO LV Diastolic Diameter PLAX 3.0 cm 4.2 - 5.9 / 3.9 - 5.3 cm LV Systolic Diameter PLAX 2.4 cm LV Chamber Size 3.6 cm IVS Diastolic Thickness 0.6 cm 0.6 - 1.0 / 0.6 - 0.9 cm IVS Systolic Thickness 1.1 cm LVPW Diastolic Thickness 1.2 cm 0.6 - 1.0 / 0.6 - 0.9 cm LVPW Systolic Thickness 1.4 cm RV Chamber Size 2.5 cm LVOT Diameter 2.0 cm LV Ejection Fraction 2D Teich 43.8 % LV Ejection Fraction MOD 2C 52.7 % LV Ejection Fraction 2C AL 54.4 % LA Diameter 2.1 cm LA Width 2.6 cm LA Height 2.7 cm RA Width 2.8 cm RA Height 2.5 cm Aorta at Sinotubular Diameter 2.2 cm IVC Diameter 1.5 cm M-MODE Aortic Annulus Diameter 2.8 cm LA Ao Ratio MM 1.1 MV E Point Septal Separation 0.4 cm DOPPLER AV Peak Velocity 190.5 cm/s LVOT Peak Velocity 103.0 cm/s AV Area Cont Eq vti 1.6 cm squared AV Area Cont Eq pk 1.8 cm squared MV Area PHT 4.8 cm squared Mitral E to A Ratio 1.5 MV E' Velocity 60.0 cm/s Mitral E to MV E' Ratio 7.3 Mitral E to LV E' Lateral Ratio 7.4 Mitral E to LV E' Septal Ratio 7.2 TR Peak Velocity 190.3 cm/s TR Peak Gradient 14.5 mmHg TR Mean Velocity 160.6 cm/s TR Mean Gradient 11.8 mmHg TR Velocity Time Integral 55.8 cm TV Peak E Velocity 73.0 cm/s Right Atrial Pressure 3.0 mmHg Pulmonary Artery Systolic Pressu 17.5 mmHg RV Acceleration Time 0.2 s RV Ejection Time 0.3 s RV AcT/ET 0.6 FINDINGS Left Ventricle Left ventricle is normal in size. LV systolic function is normal with EF of 55 to 60%. No regional motion abnormalities are seen. Diastolic function is normal Right Ventricle Normal in size and function Right Atrium Normal in size Left Atrium Normal in size Mitral Valve Mitral valve prolapse is seen. No significant stenosis or regurgitation Aortic Valve Cannot rule out bicuspid aortic valve as short axis images are not very clear. Borderline/mild aortic stenosis with aortic valve area of 1.53cm squared and mean gradient of 8.2 mmHg. Tricuspid Valve Mild tricuspid regurgitation. Pulmonary artery systolic pressure is normal. Pulmonic Valve Not well-visualized Pericardium Normal Aorta Aortic root is normal in size IVC CONCLUSIONS LV systolic function is normal with EF of 55 to 60%. Diastolic function is normal. Mitral valve prolapse. No significant regurgitation Bicuspid aortic valve cannot be ruled out as short axis images are not very clear. Borderline/mild aortic stenosis with aortic valve area of 1.53 cm. Mean gradient of 8.2 mmHg. Mild tricuspid regurgitation No comparison studies are available Jeovany Bedolla MD (Electronically Signed) Final Date: 13 January 2022 13:53 S
== END 2022-01-11 14:02 | disposition home or self-care (01) ==
PROVIDERS: PCP Family Medicine Adult Medicine; Visit Provider Family Medicine Adult Medicine
DX: I08.3 Combined rheumatic disorders of mitral, aortic and tricuspid valves (principal)
CPT/HCPCS: 93306

== ENCOUNTER → 2024-04-26 13:59 | Outpatient (BNVA) | payer OTHER, SELFPAY | PROVIDERS: PCP Family Medicine Adult Medicine; Visit Provider Nurse Practitioner Women's Health | DX: Z32.01 Encounter for pregnancy test, result positive (principal); N91.2 Amenorrhea, unspecified | CPT/HCPCS: 81025; 84702; 86850; 86900 ==

== ENCOUNTER → 2024-05-04 10:26 | Outpatient (BNVA) | payer MEDICAID, SELFPAY | PROVIDERS: PCP Family Medicine Adult Medicine; Visit Provider Nurse Practitioner Women's Health | DX: Z36.9 Encounter for antenatal screening, unspecified (principal) | CPT/HCPCS: 76801 ==

== ENCOUNTER → 2024-05-18 09:23 | Outpatient (BNVA) | payer MEDICAID, SELFPAY | PROVIDERS: PCP Family Medicine Adult Medicine; Visit Provider Nurse Practitioner Women's Health | DX: Z34.90 Encounter for supervision of normal pregnancy, unspecified, unspecified trimester (principal) | CPT/HCPCS: 80307; 81000; 84443; 85025; 86592; 86762; 86803; 86850; 86900; 87086; 87340; 87491; 87591; 87661; 87806 ==

== ENCOUNTER → 2024-06-02 13:51 | Outpatient (BNVA) | payer MEDICAID, SELFPAY | PROVIDERS: PCP Family Medicine Adult Medicine; Visit Provider Obstetrics & Gynecology | DX: Z34.90 Encounter for supervision of normal pregnancy, unspecified, unspecified trimester (principal) | CPT/HCPCS: 81000; 87624 ==

== ENCOUNTER → 2024-06-29 13:51 | Outpatient (BNVA) | payer MEDICAID, SELFPAY | PROVIDERS: PCP Family Medicine Adult Medicine; Visit Provider Nurse Practitioner Women's Health | DX: Z34.00 Encounter for supervision of normal first pregnancy, unspecified trimester (principal) | CPT/HCPCS: 82105; 84315 ==

== ENCOUNTER → 2024-07-27 14:15 | Outpatient (BNVA) | payer MEDICAID, SELFPAY | PROVIDERS: PCP Family Medicine Adult Medicine; Visit Provider Obstetrics & Gynecology | DX: Z36.9 Encounter for antenatal screening, unspecified (principal) | CPT/HCPCS: 76805 ==

== ENCOUNTER → 2024-08-12 10:38 | Outpatient (BNVA) | payer MEDICAID, SELFPAY | PROVIDERS: PCP Family Medicine Adult Medicine; Visit Provider Obstetrics & Gynecology | DX: Z34.80 Encounter for supervision of other normal pregnancy, unspecified trimester (principal) | CPT/HCPCS: 84315 ==

== ENCOUNTER → 2024-08-24 13:24 | Outpatient (BNVA) | payer MEDICAID, SELFPAY | PROVIDERS: PCP Family Medicine Adult Medicine; Visit Provider Nurse Practitioner Women's Health | DX: Z34.90 Encounter for supervision of normal pregnancy, unspecified, unspecified trimester (principal); Z3A.10 10 weeks gestation of pregnancy | CPT/HCPCS: 80307; 81000 ==

== ENCOUNTER → 2024-09-07 14:05 | Outpatient (BNVA) | payer MEDICAID, SELFPAY | PROVIDERS: PCP Family Medicine Adult Medicine; Visit Provider Nurse Practitioner Women's Health | DX: F50.89 Other specified eating disorder (principal) | CPT/HCPCS: 85025 ==

== ENCOUNTER → 2024-09-15 08:50 | Outpatient (BNVA) | payer MEDICAID, SELFPAY | PROVIDERS: PCP Family Medicine Adult Medicine; Visit Provider Obstetrics & Gynecology | DX: Z34.90 Encounter for supervision of normal pregnancy, unspecified, unspecified trimester (principal) | CPT/HCPCS: 82950; 84315; 85025 ==

== ENCOUNTER 2024-09-19 13:10 | Outpatient (CLI) | payer MEDICAID, SELFPAY ==
[2024-09-19 13:10] VITALS: BMI 23.1
[2024-09-19 13:25] VITALS: BP 120/77; PULSE 93
[2024-09-19 13:40] VITALS: BP 110/74; PULSE 81
[2024-09-19 13:55] VITALS: BP 120/76; PULSE 81
[2024-09-19 14:27] LABS: Bilirubin Urine Negative (Negative); Blood Urine 3+ (Negative); Glucose Urine UA Negative (Normal); Ketones Urine Negative (Negative); Leukocyte Esterase Urine 1+ (Negative); Nitrate Urine Negative (Negative); Protein Urine Trace (Negative); Specific Gravity, Urine 1.016 (1.005-1.030); Urine Appearance Clear (CLEAR); pH Urine 8.5 (5-7)
[2024-09-19 14:31] LABS: Bacteria Urine None Seen /hpf; RBC Urine >100 /hpf (0-2); Squamous Epithelial Cell Urine 0-5 /hpf (0-5)
[2024-09-19 14:32] LABS: Urine Color Orange (Yellow)
[2024-09-19 14:33] LABS: Add Urine Culture? Yes
== END 2024-09-19 14:51 | disposition home or self-care (01) ==
LOC: OPOB 13:14 → OBGYN 13:17
PROVIDERS: PCP Family Medicine Adult Medicine; Visit Provider Obstetrics & Gynecology
DX: O26.859 Spotting complicating pregnancy, unspecified trimester (principal); Z3A.00 Weeks of gestation of pregnancy not specified; R25.2 Cramp and spasm
CPT/HCPCS: 59025; 81001; 87086; 99211

== ENCOUNTER 2024-09-21 07:40 | Outpatient (CLI) | payer MEDICAID, SELFPAY ==
--- NOTE | 2024-09-21 07:45 | USCV_ITS ---
Shabana Barillas Age: 33 Gender: F : 1990 Exam Date: 09/21/2024 07:56 Ordering Phys: Davis Miller MD ([email or web address]) Technologist: MARICEL Exam Location: [facility] – [place] Indication: SoB BP: 112 / 64 HR: 70 Rhythm: Sinus Technical Quality: Adequate MEASUREMENTS (Male / Female) Normal Values 2D ECHO LV Diastolic Diameter PLAX 4.2 cm 4.2 - 5.9 / 3.9 - 5.3 cm IVS Diastolic Thickness 0.8 cm 0.6 - 1.0 / 0.6 - 0.9 cm IVS Systolic Thickness 1.3 cm LVPW Diastolic Thickness 0.7 cm 0.6 - 1.0 / 0.6 - 0.9 cm LVPW Systolic Thickness 1.0 cm LVOT Diameter 1.7 cm LV Ejection Fraction 2D Teich 56.8 % LV Ejection Fraction MOD 4C 62.7 % LV Ejection Fraction MOD 2C 68.9 % LV Ejection Fraction 2C AL 69.7 % LA Diameter 1.7 cm RA Systolic Volume 4C AL 24.4 ml RA Systolic Volume 4C MOD 23.6 ml LA Sys Volume AL 19.1 cm cubed LA Sys Volume Index AL 10.9 cm cubed/m squared Aorta at Sinotubular Diameter 2.1 cm IVC Diameter 1.6 cm M-MODE LA Ao Ratio MM 1.3 AV Cusp Separation MM 1.6 cm DOPPLER AV Peak Velocity 179.0 cm/s LVOT Peak Velocity 101.0 cm/s AV Area Cont Eq vti 1.6 cm squared AV Area Cont Eq pk 1.3 cm squared MV Peak Velocity 107.0 cm/s MV Area PHT 5.5 cm squared Mitral E to A Ratio 1.2 TR Peak Velocity 79.0 cm/s TR Peak Gradient 2.5 mmHg TV Peak E Velocity 66.0 cm/s PV Peak Velocity 91.0 cm/s FINDINGS Left Ventricle Normal left ventricular size, systolic function and wall thickness, with no regional wall motion abnormalities. Left ventricular ejection fraction is estimated at 60 %. Grade II/IV diastolic dysfunction, moderately elevated filling pressures. Right Ventricle The right ventricle is normal in size and function. Right Atrium The right atrium is normal in size. Left Atrium The left atrium is normal in size. Mitral Valve Mildly thickened mitral valve. No mitral valve stenosis. Mild mitral valve regurgitation. Aortic Valve Mild aortic valve calcification. No aortic valve stenosis. Trace aortic valve regurgitation. Tricuspid Valve Mild tricuspid valve regurgitation. Pulmonic Valve Structurally normal pulmonic valve without significant stenosis. There is no pulmonic regurgitation. Pericardium Normal pericardium without effusion. Aorta Normal ascending aorta dimension. IVC The inferior vena cava appears normal. CONCLUSIONS Normal left ventricular size, systolic function and wall thickness, with no regional wall motion abnormalities. Left ventricular ejection fraction is estimated at 60 %. Grade II/IV diastolic dysfunction, moderately elevated filling pressures. Mildly thickened mitral valve. No mitral valve stenosis. Mild mitral valve regurgitation. Mild aortic valve calcification. No aortic valve stenosis. Trace aortic valve regurgitation. There is no pericardial effusion. Right atrial pressure is around 5 mm of mercury. Davis Miller MD (Electronically Signed) Final Date: 19 October 2024 20:40 S
== END 2024-09-21 07:41 | disposition home or self-care (01) ==
PROVIDERS: Visit Provider Internal Medicine Cardiovascular Disease
DX: Q23.1 Congenital insufficiency of aortic valve (principal); R06.02 Shortness of breath; R93.1 Abnormal findings on diagnostic imaging of heart and coronary circulation; I34.0 Nonrheumatic mitral (valve) insufficiency; I35.8 Other nonrheumatic aortic valve disorders; I07.1 Rheumatic tricuspid insufficiency
CPT/HCPCS: 93306

== ENCOUNTER 2024-09-22 15:00 | Outpatient (CLI) | payer MEDICAID, SELFPAY ==
[2024-09-22 15:00] VITALS: BMI 23.2
[2024-09-22 15:11] VITALS: BP 108/71; PULSE 85
[2024-09-22 15:26] VITALS: BP 99/62; PULSE 82
== END 2024-09-22 16:00 | disposition home or self-care (01) ==
LOC: OPOB 15:03 → OBGYN 15:04
PROVIDERS: Visit Provider Obstetrics & Gynecology
DX: O26.899 Other specified pregnancy related conditions, unspecified trimester (principal); Z3A.00 Weeks of gestation of pregnancy not specified; R10.9 Unspecified abdominal pain; N39.0 Urinary tract infection, site not specified
CPT/HCPCS: 59025; 99211

== ENCOUNTER → 2024-09-30 08:26 | Outpatient (BNVA) | payer MEDICAID, SELFPAY | PROVIDERS: PCP Family Medicine Adult Medicine; Visit Provider Obstetrics & Gynecology | DX: Z34.80 Encounter for supervision of other normal pregnancy, unspecified trimester (principal) | CPT/HCPCS: 84315 ==

== ENCOUNTER 2024-11-17 21:08 | Outpatient (CLI) | payer MEDICAID, SELFPAY ==
[2024-11-17 21:16] VITALS: BP 121/86; PULSE 90
[2024-11-17 22:56] VITALS: BP 122/87; PULSE 86
[2024-11-17 23:12] VITALS: BP 135/93; PULSE 77
[2024-11-17 23:26] VITALS: BP 130/87; PULSE 67
[2024-11-17 23:41] VITALS: BP 123/78; PULSE 62
[2024-11-17 23:56] VITALS: BP 123/79; PULSE 61
[2024-11-18 00:11] VITALS: BP 130/87; PULSE 68
[2024-11-18 00:26] VITALS: BP 125/85; PULSE 73
[2024-11-18 00:50] VITALS: BP 125/85; PULSE 73; TEMP 36.8; O2SAT 100
== END 2024-11-18 00:50 | disposition home or self-care (01) ==
LOC: OPOB 21:08 → OBGYN 21:09
PROVIDERS: PCP Family Medicine Adult Medicine; Visit Provider Obstetrics & Gynecology
DX: O26.899 Other specified pregnancy related conditions, unspecified trimester (principal); Z3A.00 Weeks of gestation of pregnancy not specified; R10.9 Unspecified abdominal pain; N89.8 Other specified noninflammatory disorders of vagina
CPT/HCPCS: 59025; 83986; 99211